=== PATIENT | male | born 1985 | race Caucasian/White ===

== ENCOUNTER 2020-11-12 00:36 | Inpatient (IN) | payer OTHER ==
[2020-11-12] MEDS ORDERED: ACETAMINOPHEN 500 MG TABLET (FP) ONE (01:13)
[2020-11-12] MEDS ORDERED: ACETAMINOPHEN 500 MG TABLET (FP) PO ONE (01:13)
[2020-11-12 01:16] VITALS: BMI 35.4
[2020-11-12] MEDS ORDERED: morphine CARPU-JECT 2 MG/1 ML DISP.SYRIN IVPUSH ONE (01:23)
[2020-11-12] MEDS ORDERED: MORPHINE SULFATE 2 MG/ML VIAL ONE ×2 (01:35→04:49)
[2020-11-12 01:55] LABS: BASO % 1.4 % (0-2.0); EOS % 6.4 % (0-4.5); HEMATOCRIT 45.5 % (35.4-49); HEMOGLOBIN 15.2 GM/dL (11.7-16.9); LYMPH % 28.7 % (8-40); MCHC 33.4 g/dl (32.0-35.9); MEAN CELL VOLUME 83.9 fl (80-96); MEAN PLT VOLUME 8.4 fl (7.5-11.1); MONO % 6.2 % (3.8-10.2); NEUT % 57.3 % (42.8-82.8); PLATELET COUNT 306 K/MM3 (134-434); RBC 5.43 M/mm3 (4.00-5.60); RDW 13.5 % (11.9-15.9); WHITE BLOOD COUNT 11.8 K/mm3 (4.0-10.0)
[2020-11-12 02:21] LABS: ALBUMIN 3.9 g/dl (3.4-5.0); CALCIUM 9.4 mg/dL (8.5-10.1)
[2020-11-12 02:22] LABS: BLOOD UREA NITROGEN 8.1 mg/dL (7-18)
[2020-11-12 02:26] LABS: BILIRUBIN,TOTAL 0.4 mg/dL (0.2-1); TOT PROT 7.5 g/dl (6.4-8.2)
[2020-11-12] MEDS ORDERED: morphine CARPU-JECT 4 MG/1 ML DISP.SYRIN IVPUSH ONE (03:46)
[2020-11-12] MEDS ORDERED: morphine SULFATE 4 MG/ML VIAL ONE (04:04)
[2020-11-12] MEDS ORDERED: SODIUM CHLORIDE 1,000 ML IV SCH ×2 (04:30→15:21)
[2020-11-12] MEDS ORDERED: ACETAMINOPHEN 1000 MG/100 ML VIAL (NON FORMULARY) IVPB PRN (04:32)
[2020-11-12] MEDS ORDERED: MORPHINE SULFATE 2 MG/ML VIAL IVPUSH PRN ×3 (04:33→15:21)
[2020-11-12 07:15] LABS: HEMATOCRIT 42.9 % (35.4-49); HEMOGLOBIN 14.5 GM/dL (11.7-16.9); INR 0.94 (0.83-1.09); MCH 28.3 pg (25.7-33.7); MCHC 33.8 g/dl (32.0-35.9); MEAN PLT VOLUME 8.3 fl (7.5-11.1); PLATELET COUNT 283 K/MM3 (134-434); PROTHROMBIN TIME (PATIENT) 11.6 SEC (9.7-13.0); RDW 13.4 % (11.9-15.9); WHITE BLOOD COUNT 10.3 K/mm3 (4.0-10.0)
[2020-11-12 07:18] LABS: ACTIVATED PTT 27.9 SECONDS (25.2-36.5); POTASSIUM 4.4 mmol/L (3.5-5.1)
[2020-11-12 07:20] LABS: CALCIUM 8.6 mg/dL (8.5-10.1); MAGNESIUM 2.1 mg/dL (1.8-2.4)
[2020-11-12 07:24] LABS: CREATININE 0.9 mg/dL (0.55-1.3)
[2020-11-12] MEDS ORDERED: ACETAMINOPHEN INJECTION 100 ML IVPB ONE (09:10)
[2020-11-12] MEDS ORDERED: CEFTRIAXONE 1 GM/50 ML BAG ONE (09:10)
[2020-11-12 09:53] LABS: URINE APPEARANCE CLEAR; URINE COLOR YELLOW; URINE GLUCOSE (UA) NEGATIVE (NEGATIVE)
[2020-11-12 09:54] LABS: HYALINE CASTS 0.25 /uL (0-3.1); PH,URINE 5.5 (5.0-8.0); URINE BACTERIA 90.7 /uL (0-1359); URINE BILIRUBIN NEGATIVE (NEGATIVE); URINE KETONE NEGATIVE (NEGATIVE); URINE LEUK ESTERASE NEGATIVE (NEGATIVE); URINE NITRITE NEGATIVE (NEGATIVE); URINE PROTEIN 30 (NEGATIVE); URINE RBC 7.8 /uL (0-23.9); URINE UROBILINOGEN 0.2 mg/dL (0.2-1.0); URINE WBC 1.2 /uL (0-25.8)
[2020-11-12] MEDS ORDERED: CEFTRIAXONE 1 GM in DEXTROSE 5%-WATER - 50 ML IVPB SCH (10:00)
[2020-11-12] MEDS ORDERED: ONDANSETRON 4 MG/2 ML VIAL IVPUSH PRN ×2 (13:43→15:21)
[2020-11-12] MEDS ORDERED: oxyCODONE HCL 5 MG TABLET PO PRN ×2 (13:43→15:21)
[2020-11-12] MEDS ORDERED: MIDAZOLAM HCL 2 MG/2 ML SINGLE DOSE VIAL ONE ×2 (13:48→14:18)
[2020-11-12] MEDS ORDERED: PROPOFOL 20 ML ONE (13:48)
[2020-11-12] MEDS ORDERED: POLYETHYLENE GLYCOL 3350 119 GM BTL PO PRN ×2 (15:14→15:21)
[2020-11-12] MEDS ORDERED: ACETAMINOPHEN 500 MG TABLET (FP) PO PRN ×2 (19:15)
[2020-11-12] MEDS ORDERED: KETOROLAC TROMETHAMINE 30 MG/1 ML VIAL IVPUSH SCH (21:00)
[2020-11-12] MEDS: KETOROLAC TROMETHAMINE 30 MG/1 ML VIAL IVPUSH SCH (21:46)
[2020-11-12] MEDS ORDERED: SENNOSIDES 8.6MG TABLET (FP) PO SCH ×2 (22:00)
[2020-11-12 22:14] VITALS: TEMP 98.3
[2020-11-13] MEDS: KETOROLAC TROMETHAMINE 30 MG/1 ML VIAL IVPUSH SCH (02:16)
[2020-11-13 06:58] VITALS: BP 122/68; PULSE 82
[2020-11-13 08:55] LABS: BASO % 0.6 % (0-2.0); EOS % 3.7 % (0-4.5); HEMATOCRIT 42.3 % (35.4-49); LYMPH % 27.5 % (8-40); MCHC 33.1 g/dl (32.0-35.9); MEAN CELL VOLUME 84.4 fl (80-96); MEAN PLT VOLUME 8.4 fl (7.5-11.1); NEUT % 60.2 % (42.8-82.8); PLATELET COUNT 279 K/MM3 (134-434); RBC 5.01 M/mm3 (4.00-5.60); RDW 13.8 % (11.9-15.9); WHITE BLOOD COUNT 12.4 K/mm3 (4.0-10.0)
[2020-11-13 09:20] LABS: CALCIUM 8.7 mg/dL (8.5-10.1)
[2020-11-13 09:24] LABS: CREATININE 0.8 mg/dL (0.55-1.3)
[2020-11-13] MEDS ORDERED: CEFTRIAXONE 1 GM in DEXTROSE 5%-WATER - 50 ML IVPB SCH (10:00)
== END 2020-11-13 09:28 | disposition home or self-care (01) | DRG 254 ==
LOC: JER 00:36 → OBSVTOIN 03:35 → JERBED 03:35 → J8W 15:53
PROVIDERS: ADMIT Internal Medicine; ATTEND Internal Medicine
PROC: 0J9B0ZX Drainage of Perineum Subcutaneous Tissue and Fascia, Open Approach, Diagnostic (ICD-10-PCS; principal; 2020-11-12 13:00)
DX: K61.39 Other ischiorectal abscess (principal); Z87.891 Personal history of nicotine dependence; K61.0 Anal abscess; E66.9 Obesity, unspecified; Z68.35 Body mass index [BMI] 35.0-35.9, adult; Z71.3 Dietary counseling and surveillance
CPT/HCPCS: 36415; 71045-TC-FY; 72193-TC; 80048; 80053; 81003; 83036; 83735; 84100; 85025; 85027; 85610; 85730; 87070; 87076; 87086; 87186; 87205; 93005; 93010; 94760; 99285-25; C9803; J0131; Q9967; U0003

== ENCOUNTER 2020-11-18 06:14 | Emergency (ER) | payer OTHER ==
[2020-11-18 06:39] VITALS: BMI 25.8
[2020-11-18] MEDS ORDERED: diphenhydrAMINE HCL 50 MG CAPSULE PO ONE (07:18)
[2020-11-18] MEDS ORDERED: diphenhydrAMINE HCL 25 MG CAPSULE (FP) PO ONE (07:44)
[2020-11-18 08:03] VITALS: BP 117/89; PULSE 82; TEMP 97.7
== END 2020-11-18 07:55 | disposition home or self-care (01) ==
LOC: JER 06:14
DX: T78.40XA Allergy, unspecified, initial encounter (principal)
CPT/HCPCS: 99283-25